=== PATIENT | male | born 1960 | race Caucasian/White ===

== ENCOUNTER 2019-02-19 12:03 | Emergency (ER) | payer MEDICAID ==
[~2019-02-19] VITALS: Ht 170.2 cm; Wt 82.6 kg
--- NOTE | 2019-02-19 12:20 | NUR ---
BIB SELF 58 YEAR OLD MALE C/O DYSURIA, URGENCY. DX UTI, 4 DAYS AGO. ALERT AND OIRENTED X4 BREATHING EVEN AND UNLABORED WITH NO DISTRESS NOTED. SKIN INTACT. PATIENT IS ABLE TO AMBULATE. WAITING TO BE SEEN BY MD.
--- NOTE | 2019-02-19 12:27 | NUR ---
URINE COLLECTED SENT TO LAB
[2019-02-19 12:34] LABS: BASOPHILS # (AUTO) 0.1 /CMM (0.0-0.2); BASOPHILS % (AUTO) 0.7 % (0.0-2.0); EOSINOPHILS % (AUTO) 1.4 % (0.0-6.0); HEMATOCRIT 45 % (39-51); HEMOGLOBIN 15.4 g/dL (13.5-17.5); LYMPHOCYTES % (AUTO) 20.9 % (20.0-44.0); MEAN CORPUSCULAR HGB CONC 34 g/dl (31.0-36.0); MEAN CORPUSCULAR VOLUME 88 fL (80-96); MONOCYTES # (AUTO) 1.1 /CMM (0.1-1.30); MONOCYTES % (AUTO) 11.3 % (2.0-12.0); NEUTROPHILS # (AUTO) 6.4 /CMM (1.8-8.9); NEUTROPHILS % (AUTO) 65.7 % (43.0-81.0); PLATELET COUNT (AUTO) 236 /CMM (150-450); RED BLOOD CELL COUNT(AUTO) 5.13 MIL/uL (4.5-6.0); WHITE BLOOD COUNT (AUTO) 9.7 K/uL (4.3-11.0)
[2019-02-19 12:44] LABS: CALCIUM, SERUM 9.3 mg/dL (8.5-10.1); CREATININE 2.3 mg/dL (0.6-1.3); POTASSIUM 4.2 mmol/L (3.5-5.1)
--- NOTE | 2019-02-19 12:45 | NUR ---
FIRE MED[facility] AT BEDSIDE TO TAKE PATIENT FOR CT SCAN
[2019-02-19 13:32] LABS: APPEARANCE,URINE Slightly Cloudy (CLEAR); BILIRUBIN,URINE SMALL (NEGATIVE); BLOOD, URINE Moderate Ery/uL (NEGATIVE); KETONES,URINE Negative (NEGATIVE); LEUKOCYTE ESTERASE ,URINE Negative (NEGATIVE); NITRITE, URINE Positive (NEGATIVE); PROTEIN,URINE >=300 mg/dl (NEGATIVE); UGLUCOSE 100 MG/DL mg/dL (NEGATIVE)
[2019-02-19 13:34] LABS: COLOR,URINE Dark Yellow (YELLOW)
[2019-02-19 13:42] LABS: RBC,URINE 20-50 /HPF (0-2)
[2019-02-19 13:43] LABS: BACTERIA,URINE Few /HPF (None Seen); SQUAMOUS EPITHELIAL CELL,UR Few /HPF (None Seen)
[2019-02-19 13:52] VITALS: BP 144/80
== END 2019-02-19 13:53 | disposition home or self-care (01) ==
LOC: ER 12:09
DX: N39.0 Urinary tract infection, site not specified (principal); L98.8 Other specified disorders of the skin and subcutaneous tissue; E78.00 Pure hypercholesterolemia, unspecified
CPT/HCPCS: 36415; 80048-TC; 81000-TC; 85025-TC; 87086-TC

== ENCOUNTER 2019-03-23 09:17 | Inpatient (IN) | payer MEDICAID ==
[~2019-03-23] VITALS: Ht 167.6 cm; Wt 84.8 kg
--- NOTE | 2019-03-23 09:32 | NUR ---
PT BIB SELF C/O GROIN AND SCROTAL PAIN FOR 3 DAYS, PT IS AAOX4, NOT IN RESPIRATORY DISTRESS, HOOKED TO MONITOR, KEPT RESTED AND COMFORTABLE, WILL CONTINUE TO MONITOR.
--- NOTE | 2019-03-23 09:43 | NUR ---
AT BEDSIDE FOR EVAL.
[2019-03-23] MEDS ORDERED: IV NS 0.9% 1,000 ML BAG IV ONE (10:00)
--- NOTE | 2019-03-23 10:00 | NUR ---
IV LINE ESTABLISHED, BLOOD DRAWN AND SENT TO LAB.
[2019-03-23 10:03] LABS: BASOPHILS % (AUTO) 0.3 % (0.0-2.0); EOSINOPHILS % (AUTO) 0.2 % (0.0-6.0); HEMATOCRIT 43 % (39-51); HEMOGLOBIN 14.4 g/dL (13.5-17.5); LYMPHOCYTES # (AUTO) 1.6 /CMM (0.8-4.8); LYMPHOCYTES % (AUTO) 10.8 % (20.0-44.0); MEAN CORPUSCULAR HGB CONC 34 g/dl (31.0-36.0); MEAN CORPUSCULAR VOLUME 86 fL (80-96); MONOCYTES # (AUTO) 1.6 /CMM (0.1-1.30); NEUTROPHILS # (AUTO) 11.1 /CMM (1.8-8.9); NEUTROPHILS % (AUTO) 77.7 % (43.0-81.0); PLATELET COUNT (AUTO) 255 /CMM (150-450); RED BLOOD CELL COUNT(AUTO) 4.94 MIL/uL (4.5-6.0); WHITE BLOOD COUNT (AUTO) 14.4 K/uL (4.3-11.0)
--- NOTE | 2019-03-23 10:03 | NUR ---
TECH AT BEDSIDE FOR US.
[2019-03-23 10:22] LABS: ALBUMIN 3.7 g/dL (3.4-5.0); BILIRUBIN,DIRECT 0.3 mg/dL (0.0-0.2); BILIRUBIN,TOTAL 1.4 mg/dL (0.2-1.0); CALCIUM, SERUM 9.4 mg/dL (8.5-10.1); CREATININE 1.7 mg/dL (0.6-1.3); TOTAL PROTEIN, SERUM 8.2 g/dL (6.4-8.2)
--- NOTE | 2019-03-23 10:46 | NUR ---
URINE SPECIMEN COLLECTED AND SENT TO LAB.
[2019-03-23 10:50] LABS: APPEARANCE,URINE Cloudy (CLEAR); BILIRUBIN,URINE Negative (NEGATIVE); BLOOD, URINE Large Ery/uL (NEGATIVE); COLOR,URINE Yellow (YELLOW); KETONES,URINE Negative (NEGATIVE); LEUKOCYTE ESTERASE ,URINE Large (NEGATIVE); NITRITE, URINE Positive (NEGATIVE); PH,URINE 5.5 (5.0-8.0); PROTEIN,URINE 100 mg/dl (NEGATIVE); UGLUCOSE Negative (NEGATIVE); UROBILINOGEN,URINE 0.2 EU/dL (0.2)
[2019-03-23 10:57] LABS: RBC,URINE 21-50 /HPF (0-2); WBC,URINE TOO NUMEROUS TO COUN /HPF (0-3)
[2019-03-23 10:58] LABS: BACTERIA,URINE 2+ /HPF (None Seen); MUCUS,URINE Few /LPF (None Seen); SQUAMOUS EPITHELIAL CELL,UR 0-2 /HPF (None Seen); URINE AMORPHOUS URATE Few /HPF (None Seen)
[2019-03-23] MEDS ORDERED: DIATRIZOATE MEGLUMINE 300 ML BOTTLE UR ONE (11:49)
--- NOTE | 2019-03-23 11:51 | NUR ---
PT IS WHEELED TO CT SCAN VIA [facility].
--- NOTE | 2019-03-23 12:08 | NUR ---
PT CONSENT SIGNED FOR CYSTOGRAM.
[2019-03-23] MEDS ORDERED: IOHEXOL-300 100 ML VIAL IV ONE (12:37)
[2019-03-23] MEDS ORDERED: PIPERACILLIN /TAZOBACTAM 3.375 G in IV D5W 50 ML IV ONE (14:00)
--- NOTE | 2019-03-23 14:53 | NUR ---
SPOKED TO TRANSFER MAN, WILL PRESENT PATIENT TO DR. HASSAN HOSPITALIST.
--- NOTE | 2019-03-23 17:00 | NUR ---
CALLED [facility] FOR A CONSULT.
--- NOTE | 2019-03-23 17:36 | NUR ---
SECOND ATTEMPT FOR [facility].
[2019-03-23] MEDS ORDERED: SULF1TAB3 PO (18:02)
[2019-03-23] MEDS ORDERED: CIPR500T5 PO (18:02)
--- NOTE | 2019-03-23 18:12 | NUR ---
NEREIDA SUP GAVE BED 107
--- NOTE | 2019-03-23 18:16 | NUR ---
REPORT GIVEN TO NEREIDA HILLIARD FOR JOAN.
--- NOTE | 2019-03-23 20:10 | NUR ---
RN ADMITTING NOTES: RECEIVED PATIENT FROM ER WITH DX DIVERTICULITIS AND UTI. VITAL SIGNS TAKEN. PHYSICAL ASSESSMENT DONE. A&OX4. ON RA, TOLERATING WELL. NO RESPIRATORY DISTRESS. PATIENT AMBULATORY WITH STEADY GAIT. C/O 3/10 GROIN PAIN UPON POSITION CHANGES. OFFERED PAIN MEDICATION. PATIENT REFUSED AND STATES HE WANTS TO AVOID PAIN MEDS AT THIS TIME. RISKS AND BENEFITS EXPLAINED. (R) AC #18 INTACT, PATENT, AND FLUSHING WELL. CRANE CATHETER PATENT AND DRAINING CLEAR YELLOW URINE. SAFETY PRECAUTIONS IMPLEMENTED. BED LOCKED AND IN LOWEST POSITION. CALL LIGHT PLACED WITHIN REACH. WILL CONT. TO MONITOR.
[2019-03-23 20:30] VITALS: BP 102/54
[2019-03-23] MEDS ORDERED: ACETAMINOPHEN 325 MG TABLET PO PRN (20:30)
[2019-03-23] MEDS ORDERED: ONDANSETRON HCL/PF 4 MG/2 ML VIAL IVP PRN (20:30)
[2019-03-23] MEDS ORDERED: MAG HYDROX/AL HYDROX/SIMETH 30 ML UDC PO PRN (20:30)
[2019-03-23] MEDS ORDERED: MORPHINE SULFATE INJ 2 MG/ML DISP.SYRIN IV PRN (20:30)
[2019-03-23] MEDS ORDERED: MAGNESIUM HYDROXIDE 30 ML UDC PO PRN (20:30)
[2019-03-23] MEDS: IV 1/2NS 1000 ML 1,000 ML IV PRN (20:51)
[2019-03-23] MEDS: PIPERACILLIN /TAZOBACTAM 3.375 G in IV D5W 100 ML IV SCH (20:52)
[2019-03-23] MEDS: ZOLPIDEM TARTRATE 5 MG TABLET PO PRN (23:40)
[2019-03-24] MEDS ORDERED: PIPERACILLIN /TAZOBACTAM 3.375 G in IV D5W 50 ML IV SCH ×2
[2019-03-24 04:00] VITALS: BP 105/60
[2019-03-24] MEDS: PIPERACILLIN /TAZOBACTAM 3.375 G in IV D5W 100 ML IV SCH ×3 (04:06→21:42)
--- NOTE | 2019-03-24 06:30 | NUR ---
RN CLOSING NOTES: PATIENT IN AWAKE AND VERBALLY RESPONSIVE. NO RESPIRATORY DISTRESS. NO PAIN AT THIS TIME. SAFETY PRECAUTIONS IMPLEMENTED. ALL NEEDS ATTENDED. CALL LIGHT WITHIN REACH. WILL ENDORSE TO AM SHIFT NURSE FOR CONTINUITY OF CARE.
[2019-03-24 07:00] LABS: BASOPHILS % (AUTO) 0.2 % (0.0-2.0); EOSINOPHILS % (AUTO) 1.3 % (0.0-6.0); HEMATOCRIT 41 % (39-51); HEMOGLOBIN 13.5 g/dL (13.5-17.5); LYMPHOCYTES # (AUTO) 1.3 /CMM (0.8-4.8); LYMPHOCYTES % (AUTO) 11.7 % (20.0-44.0); MEAN CORPUSCULAR HGB CONC 33 g/dl (31.0-36.0); MEAN CORPUSCULAR VOLUME 88 fL (80-96); MONOCYTES # (AUTO) 1.2 /CMM (0.1-1.30); MONOCYTES % (AUTO) 10.5 % (2.0-12.0); NEUTROPHILS # (AUTO) 8.6 /CMM (1.8-8.9); NEUTROPHILS % (AUTO) 76.3 % (43.0-81.0); PLATELET COUNT (AUTO) 249 /CMM (150-450); WHITE BLOOD COUNT (AUTO) 11.3 K/uL (4.3-11.0)
[2019-03-24 07:25] LABS: THYROID STIMULATING HORMONE 0.949 uIU/mL (0.358-3.74)
[2019-03-24 07:29] LABS: ALBUMIN 3.1 g/dL (3.4-5.0); BILIRUBIN,TOTAL 0.9 mg/dL (0.2-1.0); CALCIUM, SERUM 9.1 mg/dL (8.5-10.1); CREATININE 1.7 mg/dL (0.6-1.3); PHOSPHORUS 3.5 mg/dL (2.5-4.9); POTASSIUM 3.8 mmol/L (3.5-5.1); TOTAL PROTEIN, SERUM 7.4 g/dL (6.4-8.2)
[2019-03-24 08:00] VITALS: BP_SYST 102; BP_SYST 120; BP_DIAS 65
[2019-03-24] MEDS: PANTOPRAZOLE 40 MG TABLET.DR PO SCH (08:25)
[2019-03-24] MEDS ORDERED: ASPIRIN 81 MG TAB.CHEW PO STA (11:51)
--- NOTE | 2019-03-24 11:57 | NUR ---
rn note pt co pressure in heart/chest, no pain in back or arm, aox4, vs stable, Dr Guevara reached and got orders for aspirin 81 mg, stat EKG, nitroglycerin, series of troponin. pt had normal sinus rhythm, ham boner placed on his chest. refused nitroglycerin SL stating "I feel ok after I walked." will monitor further.
[2019-03-24 12:00] VITALS: BP 116/75
[2019-03-24] MEDS ORDERED: NITROGLYCERIN 0.4 MG/TAB BOTTLE SL PRN (12:00)
[2019-03-24 16:00] VITALS: BP 124/81
--- NOTE | 2019-03-24 19:20 | NUR ---
RN OPENING NOTES: PATIENT AWAKE AND VERBALLY RESPONSIVE. A&OX4. NO RESPIRATORY DISTRESS. NO C/O PAIN AT THIS TIME. (R) AC #18 INTACT, PATENT, AND FLUSHING WELL RUNNING 1/2 NS AT 80 MLS/HR, TOLERATING WELL. CRANE INTACT, PATENT, AND DRAINING URINE. SAFETY PRECAUTIONS IMPLEMENTED. BED LOCKED AND IN LOWEST POSITION. CALL LIGHT PLACED WITHIN REACH. WILL CONT. TO MONITOR.
[2019-03-24 20:00] VITALS: BP 119/72
--- NOTE | 2019-03-24 20:00 | NUR ---
RN NOTE: PATIENT SEEN BY DR. MCCABE WITH NEW ORDERS.
--- NOTE | 2019-03-24 20:27 | NUR ---
RN NOTE: PAGED DR. MCCABE TO CLARIFY DOXYCYCLINE ATB SECONDARY TO UTI. PATIENT ALREADY ON ZOSYN. AWAITING FOR CALL BACK. Addendum: 03/24/19 at 2316 by PATRIC MERCEDES RN PER PHARMACIST ANA, PATIENT CAN'T HAVE 2 ATBX FOR UTI AT THE SAME TIME. PATIENT'S BUN AND CREATININE ARE HIGH. Addendum: 03/25/19 at 0625 by PATRIC MERCEDES RN NOTIFIED DR. CHAVEZ REGARDING DOXYCYCLINE. PER MD CONTVikash GAN FOR NOW AND TO ADDRESS THIS WITH AM PROVIDER. WILL ENDORSE TO AM SHIFT NURSE.
[2019-03-24] MEDS: KETOROLAC TROMETHAMINE INJ 30 MG/ML VIAL IV SCH (21:02)
--- NOTE | 2019-03-24 21:30 | NUR ---
RN NOTE: PATIENT WANTED (R) AC IV ACCESS REMOVED. PATIENT STATES HE'S NOT ABLE TO BEND (R) ARM FREELY. CHARGE NURSE INSERTED A NEW IV LINE ON (R) FOREARM #18 PER PATIENT'S REQUEST, TOLERATED PROCEDURE WELL.
[2019-03-24] MEDS: IV 1/2NS 1000 ML 1,000 ML IV PRN (21:40)
--- NOTE | 2019-03-25 00:20 | NUR ---
RN NOTE: PATIENT REFUSED BLOOD WORK DONE FOR TROPONIN. RISKS AND BENEFITS EXPLAINED BUT STILL REFUSED. PER LAKEISHA FROM LAB, THEY WILL ATTEMPT AGAIN IN AM. Addendum: 03/25/19 at 0048 by PATRIC MERCEDES RN DR. CHAVEZ MADE AWARE. NO NEW ORDERS.
[2019-03-25] MEDS: ZOLPIDEM TARTRATE 5 MG TABLET PO PRN (00:27)
--- NOTE | 2019-03-25 00:44 | NUR ---
DR. CHAVEZ MADE AWARE. NO NEW ORDERS.
[2019-03-25] MEDS: KETOROLAC TROMETHAMINE INJ 30 MG/ML VIAL IV SCH ×2 (02:29→07:56)
[2019-03-25 04:00] VITALS: BP 109/72
[2019-03-25] MEDS: PIPERACILLIN /TAZOBACTAM 3.375 G in IV D5W 100 ML IV SCH (05:37)
--- NOTE | 2019-03-25 06:40 | NUR ---
RN NOTE: PATIENT REFUSED AM BLOOD WORK. RISKS AND BENEFITS EXPLAINED BUT STILL REFUSED. PER LAB, HE WILL ATTEMPT AGAIN LATER.
--- NOTE | 2019-03-25 07:05 | NUR ---
RN CLOSING NOTES: PATIENT ASLEEP BUT EASILY AROUSABLE. NO RESPIRATORY DISTRESS. NO PAIN AT THIS TIME. SAFETY PRECAUTIONS IMPLEMENTED. ALL NEEDS ATTENDED. CALL LIGHT WITHIN REACH. PER DR. CHAVEZ, CONT. ON ZOSYN FOR NOW AND F/U WITH AM PROVIDER REGARDING DOXYCYCLINE ORDERED BY DR. MCCABE. ENDORSED TO AM SHIFT NURSE.
[2019-03-25] MEDS: PANTOPRAZOLE 40 MG TABLET.DR PO SCH (07:45)
[2019-03-25 08:00] VITALS: BP 105/72
[2019-03-25] MEDS ORDERED: DOXYCYCLINE 200 MG in IV NS 0.9% 250 ML IV SCH (11:00)
[2019-03-25] MEDS: DOXYCYCLINE 100 MG in IV D5W 100 ML IV SCH ×2 (11:48→22:06)
[2019-03-25 12:23] LABS: BASOPHILS % (AUTO) 0.1 % (0.0-2.0); CALCIUM, SERUM 8.8 mg/dL (8.5-10.1); CREATININE 1.9 mg/dL (0.6-1.3); EOSINOPHILS % (AUTO) 2.4 % (0.0-6.0); HEMATOCRIT 39 % (39-51); HEMOGLOBIN 13.2 g/dL (13.5-17.5); LYMPHOCYTES # (AUTO) 0.9 /CMM (0.8-4.8); LYMPHOCYTES % (AUTO) 10.8 % (20.0-44.0); MEAN CORPUSCULAR HGB CONC 34 g/dl (31.0-36.0); MEAN CORPUSCULAR VOLUME 87 fL (80-96); MONOCYTES # (AUTO) 0.9 /CMM (0.1-1.30); MONOCYTES % (AUTO) 10.8 % (2.0-12.0); NEUTROPHILS # (AUTO) 6.6 /CMM (1.8-8.9); NEUTROPHILS % (AUTO) 75.9 % (43.0-81.0); PLATELET COUNT (AUTO) 242 /CMM (150-450); POTASSIUM 3.8 mmol/L (3.5-5.1); WHITE BLOOD COUNT (AUTO) 8.7 K/uL (4.3-11.0)
[2019-03-25] MEDS: IV 1/2NS 1000 ML 1,000 ML IV PRN (13:28)
[2019-03-25 16:00] VITALS: BP 117/75
[2019-03-25] MEDS: HYDROCODONE/APAP 5/325MG 1 EACH TABLET PO PRN (17:34)
--- NOTE | 2019-03-25 19:30 | NUR ---
MS RN OPENING NOT E RECEIVED PATIENT IN BED. A/OX4. TOLERATING ROOM AIR,. RR EVEN AND UNLABORED, NO SOB NOTED. DENIES PAIN AT THIS TIME. IN NO APPARENT DISTRESS. IV ACCESS IN RAC RUNNING D5 05/16 NS @80ML. BED IS LOW AN DLOCKED, HOB ELEVATED 50 DEGREES, SIDE RIALS UP X2. CRANE CATHETER PRESEMT, DRAINING TO GRAVITY, UIRNE IS YELLOW, DARK, SEDIEMNT. CALL LIGHT WITHIN REACH WILL CONT TO MONITOR
[2019-03-25 20:00] VITALS: BP 126/83
[2019-03-26] VITALS: BP 126/83
[2019-03-26] MEDS: HYDROCODONE/APAP 5/325MG 1 EACH TABLET PO PRN ×2 (03:51→23:54)
--- NOTE | 2019-03-26 03:51 | NUR ---
MS RN NOTE ADMINSITER RUBY SIMPSON 5/325 FOR PAIN 10/10 IN SCROTUM, WILL CONTINUE TO MONITOR.
--- NOTE | 2019-03-26 07:00 | NUR ---
MS RN CLOSING NOTE PATIENT IN BED. A/OX4. TOLERATING ROOM AIR,. RR EVEN AND UNLABORED, NO SOB NOTED. PAIN MANAGED WITH NORCO. NO DISTRESS NOTED. IV ACCESS MAINTAINED IN RAC RUNNING D5 05/16 NS @80ML. BED IS LOW AN DLOCKED, HOB ELEVATED 50 DEGREES, SIDE RIALS UP X2. CRANE CATHETER MAINTAINED, DRAINING TO GRAVITY, UIRNE IS YELLOW, DARK, SEDIEMNT, OUTPUT 2400. CALL LIGHT WILL ENDORSE TO NEXT SHIFT.
--- NOTE | 2019-03-26 07:15 | NUR ---
MS RN OPENING NOTE: RECEIVED PATIENT IN BED. AWAKE, ALERT AND ORIENTED X4. ON ROOM AIR AND TOLERATING WELL AT 100% SATURATION. WITH IV SITE AT RIGHT FOREARM, DRESSING CLEAN, DRY AND SECURE. PATIENT REPORTED DISCOMFORT AT SITE, REDNESS AND PAIN NOTED REPORTED BY PATIENT. WILL REMOVE AND REINSERT AT ANOTHER SITE, PATIENT AGREES WITH THE PLAN. WITH CRANE CATHETER, DRAINING YELLOW URINE. SCROTAL EDEMA NOTED AND PATIENT REPORTS PAIN AT THE SITE. OFFERED PAIN MEDICATION, REFUSED. BED LOCKED, LOW AND SEMI-COLLIER'S POSITION. SIDE RAILS UP, CALL LIGHT IN REACH. WILL CONTINUE TO MONITOR.
[2019-03-26 08:00] VITALS: BP 103/71
[2019-03-26] MEDS: PANTOPRAZOLE 40 MG TABLET.DR PO SCH (08:26)
[2019-03-26] MEDS: DOXYCYCLINE 100 MG in IV D5W 100 ML IV SCH (11:41)
[2019-03-26] MEDS ORDERED: PIPERACILLIN /TAZOBACTAM 3.375 G in IV D5W 50 ML IV ONE (12:00)
[2019-03-26 12:24] VITALS: BP 103/71
[2019-03-26 16:00] VITALS: BP 120/83
[2019-03-26 16:04] VITALS: BP 120/83
[2019-03-26] MEDS: PIPERACILLIN /TAZOBACTAM 3.375 G in IV D5W 100 ML IV SCH (18:52)
--- NOTE | 2019-03-26 18:55 | NUR ---
MS RN CLOSING NOTE: PATIENT IN BED. AWAKE, ALERT AND ORIENTED X4. NO PAIN NOTED. NOT IN DISTRESS. NO CHANGES ON SHIFT. PATIENT IS STABLE. TOLERATING ROOM AIR WELL. IV SITE PATENT AND SITE CLEAN, DRY AND SECURE. CRANE CATHETER IN PLACE, DRAINING YELLOW URINE. CALL LIGHT IN REACH, SIDE RAILS UP. BED LOCKED, LOW AND AT SEMI-COLLIER'S POSITION. WILL ENDORSE TO ONCOMING SHIFT FOR CONTINUITY OF CARE.
[2019-03-26 20:00] VITALS: BP 122/80
[2019-03-26] MEDS ORDERED: DOXYCYCLINE 100 MG in IV D5W 100 ML IV SCH (21:00)
[2019-03-26] MEDS: DOXYCYCLINE HYCLATE (100 MG) 100 MG TABLET PO SCH (21:58)
[2019-03-27] MEDS: PIPERACILLIN /TAZOBACTAM 3.375 G in IV D5W 100 ML IV SCH ×3 (02:59→17:03)
[2019-03-27 04:00] VITALS: BP 102/72
[2019-03-27 06:37] LABS: BASOPHILS % (AUTO) 0.2 % (0.0-2.0); EOSINOPHILS % (AUTO) 3.6 % (0.0-6.0); HEMATOCRIT 41 % (39-51); HEMOGLOBIN 13.5 g/dL (13.5-17.5); LYMPHOCYTES # (AUTO) 1.7 /CMM (0.8-4.8); LYMPHOCYTES % (AUTO) 23.8 % (20.0-44.0); MEAN CORPUSCULAR HGB CONC 33 g/dl (31.0-36.0); MEAN CORPUSCULAR VOLUME 87 fL (80-96); MONOCYTES # (AUTO) 1.1 /CMM (0.1-1.30); MONOCYTES % (AUTO) 15.3 % (2.0-12.0); NEUTROPHILS # (AUTO) 4.2 /CMM (1.8-8.9); NEUTROPHILS % (AUTO) 57.1 % (43.0-81.0); PLATELET COUNT (AUTO) 275 /CMM (150-450); RED BLOOD CELL COUNT(AUTO) 4.71 MIL/uL (4.5-6.0); WHITE BLOOD COUNT (AUTO) 7.3 K/uL (4.3-11.0)
[2019-03-27 06:47] LABS: CALCIUM, SERUM 9.2 mg/dL (8.5-10.1); CREATININE 1.6 mg/dL (0.6-1.3); PHOSPHORUS 4.4 mg/dL (2.5-4.9); POTASSIUM 4.2 mmol/L (3.5-5.1)
--- NOTE | 2019-03-27 07:30 | NUR ---
MS/RN OPENING NOTES RECEIVED PATIENT IN BED AWAKE, ALERT AND ABLE TO MAKE NEEDS KNOWN. PATIENT IN ALERT AND ORIENTED X4. NO PAIN OR ACUTE DISTRESS AT THIS TIME. RESPIRATION EVEN AND UNLABORED. SKIN IS DRY WARM TO TOUCH. PATIENT ON ROOM AIR AND TOLERATING WELL AT 100% SATURATION. PATIENT NOTED WITH IV ACCESS ON LEFT FOREARM. INTACT AND PATENT. FLUSHING WELL. NO S/S OF INFECTION OR INFILTRATION. PATIENT NOTED WITH CRANE CATHETER WELL, DRAINING YELLOW URINE. ALL NEEDS ANTICIPATED. CALL LIGHT WITHIN REACHED. BED LOCKED AND IN LOWEST POSITION. SAFETY MAINTAINED. PLAN OF CARE DISCUSSED. WILL CONTINUE TO MONITOR CLOSELY.
[2019-03-27 08:00] VITALS: BP 112/74
[2019-03-27] MEDS: PANTOPRAZOLE 40 MG TABLET.DR PO SCH (08:06)
[2019-03-27] MEDS: DOXYCYCLINE HYCLATE (100 MG) 100 MG TABLET PO SCH ×2 (08:44→20:13)
--- NOTE | 2019-03-27 09:30 | NUR ---
MS/RN NOTES SPOKE TO DR. ZENDEJAS WITH ORDERS TO D/C 1/2NS FLUID. ALL ORDERS NOTED AND CARRIED OUT. WILL CONTINUE TO MONITOR CLOSELY.
[2019-03-27 16:00] VITALS: BP 123/80
[2019-03-27] MEDS: LACTOBACILLUS RHAMNOSUS GG 1 EACH CAP.SPRINK PO SCH (17:03)
--- NOTE | 2019-03-27 19:27 | NUR ---
MS/RN CLOSING NOTES PATIENT CONTINUES TO REMAIN IN STABLE CONDITION THROUGHOUT THE SHIFT. PROVIDED COMFORT AND SAFETY. PATIENT NOTED WITH IV ACCESS ON LEFT FOREARM. INTACT AND PATENT. FLUSHING WELL. NO S/S OF INFECTION OR INFILTRATION. PATIENT NOTED WITH CRANE CATHETER WELL, DRAINING YELLOW URINE. ALL NEEDS ANTICIPATED. CALL LIGHT WITHIN REACHED. BED LOCKED AND IN LOWEST POSITION. SAFETY MAINTAINED. WILL CONTINUE TO MONITOR CLOSELY. ENDORSED TO PM NURSE FOR JOAN.
--- NOTE | 2019-03-27 19:30 | NUR ---
MS RN NOTE: RECEIVED PT ON BED ALERT AND ORIENTED X4. ABLE TO MAKE NEEDS KNOWN. NO APPARENT DISTRESS NOTED. COMPLAINTS OF SCROTAL PAIN, PAIN MEDS WILL BE GIVEN ORDERED. ON ROOM AIR, BREATHING EVEN AND UNLABORED WITH NORMAL RESPIRATIONS. CRANE CATH INTACT AND DRAINING WELL. LEFT FOREARM #22 INTACT AND PATENT, FLUSHING WELL. KEPT CLEAN, DRY AND COMFORTABLE. CALL LIGHT PLACED WITHIN REACH. WILL CONTINUE TO MONITOR PT.
[2019-03-27 20:00] VITALS: BP 134/83
[2019-03-27] MEDS: HYDROCODONE/APAP 5/325MG 1 EACH TABLET PO PRN (23:22)
[2019-03-28] MEDS: PIPERACILLIN /TAZOBACTAM 3.375 G in IV D5W 100 ML IV SCH ×3 (01:59→18:29)
[2019-03-28 04:00] VITALS: BP 101/72
--- NOTE | 2019-03-28 06:42 | NUR ---
MS RN NOTE: NO CHANGES NOTED THROUGHOUT THE SHIFT. NO APPARENT DISTRESS NOTED. DENIES PAIN AND DISCOMFORT AT THIS TIME. ON ROOM AIR, SATURATING WELL. NO SOB NOTED. CRANE CATH INTACT, DRAINED 1300ML OF URINE OUTPUT. IV ON LEFT FOREARM #22 WAS INFILTRATED. REINSERTED NEW IV LINE ON RIGHT FOREARM #22, INTACT AND PATENT. KEPT CLEAN, DRY AND COMFORTABLE. CALL LIGHT PLACED WITHIN REACH. SAFETY AND FALL PRECAUTIONS OBSERVED AND MAINTAINED. WILL ENDORSE TO DAY SHIFT RN FOR CONTINUITY OF CARE.
--- NOTE | 2019-03-28 07:05 | NUR ---
MS RN OPENING NOTE: RECEIVED PATIENT IN BED. AWAKE, ALERT AND ORIENTEDX4. TOLERATING ROOM AIR @ 99% SATURATION. NO SOB,. NOT IN DISTRESS. IV SITE ON RIGHT FOREARM G22 IS PATENT, SITE CLEAN, DRY AND SECURE. PAIN AT SCROTAL AREA REPORTED BUT REFUSES PAIN MANAGEMENT AT THIS TIME, PATIENT SAYS HE IS TOLERATING IT AT THE MOMENT. CALL LIGHT IN REACH, SIDE RAILS UP, BED LOCKED AND LOW, SEMI-FOWLERS POSITION WILL CONTINUE TO MONITOR.
[2019-03-28 08:00] VITALS: BP 111/78
[2019-03-28] MEDS: PANTOPRAZOLE 40 MG TABLET.DR PO SCH (08:00)
[2019-03-28] MEDS: LACTOBACILLUS RHAMNOSUS GG 1 EACH CAP.SPRINK PO SCH ×2 (08:39→18:27)
[2019-03-28] MEDS: DOXYCYCLINE HYCLATE (100 MG) 100 MG TABLET PO SCH ×2 (08:39→20:33)
[2019-03-28] MEDS: DOCUSATE SODIUM 100 MG CAPSULE PO SCH ×2 (08:39→18:27)
[2019-03-28] MEDS: LORAZEPAM INJ 2 MG/ML VIAL IV PRN ×2 (15:43→23:37)
[2019-03-28 16:00] VITALS: BP 98/63
--- NOTE | 2019-03-28 17:05 | NUR ---
MS RN CLOSING NOTE: PATIENT IS ALERT, AWAKE X 4. CURRENTLY AMBULATING AND REQUESTING FLEET ENEMA FOR RELIEF OF DISCOMFORT FOR HIS BOWELS. CONTACTED DR. DANIELA ZENDEJAS AND ORDER GIVEN. NOTED AND CARRIED OUT. IN STABLE CONDITION, NO SOB, NOT IN DISTRESS. IV SITE PATENT, CRANE IN PLACE. WILL ENDORSE TO ONCOMING NURSE FOR CONTINUITY OF CARE.
[2019-03-28] MEDS ORDERED: NA PHOS,M-B/NA PHOS,DI-BA 1 EA ENEMA RC ONE (19:30)
--- NOTE | 2019-03-28 19:35 | NUR ---
MS/RN NOTES RECEIVED PT. LYING IN BED, PT. IS AWAKE, ALERT AND ORIENTED X4. BREATHING EVEN AND UNLABORED ON ROOM AIR. NO SOB, RESPIRATORY DISTRESS OR COMPLAINTS OF PAIN NOTED AT THIS TIME. PT. WITH RIGHT FOREARM 22 GAUGE IV SALINE LOCK PRESENT, PATENT AND INTACT. PT. PT. WITH CRANE CATHETER PRESENT, PATENT AND INTACT. FAMILY MEMBER PRESENT AT BEDSIDE. BED LOCKED AND IN LOWEST POSITION, SIDE RAILS UP X2, CALL LIGHT WITHIN REACH, WILL CONTINUE TO MONITOR.
[2019-03-28 20:00] VITALS: BP 127/85
[2019-03-28] MEDS: HYDROCODONE/APAP 5/325MG 1 EACH TABLET PO PRN (20:33)
[2019-03-29] MEDS: PIPERACILLIN /TAZOBACTAM 3.375 G in IV D5W 100 ML IV SCH ×2 (02:46→10:58)
[2019-03-29 04:00] VITALS: BP 113/75
--- NOTE | 2019-03-29 06:17 | NUR ---
MS/RN NOTES PT. IS LYING IN BED RESTING. BREATHING EVEN AND UNLABORED ON ROOM AIR. NO SOB, RESPIRATORY DISTRESS OR COMPLAINTS OF PAIN NOTED AT THIS TIME. PT. WITH RIGHT FOREARM 22 GAUGE IV SALINE LOCK PRESENT, PATENT AND INTACT. PT. PT. WITH CRANE CATHETER PRESENT, PATENT AND INTACT. ALL PT. NEEDS MET. BED LOCKED AND IN LOWEST POSITION, SIDE RAILS UP X2, CALL LIGHT WITHIN REACH, WILL ENDORSE TO DAYSHIFT NURSE FOR CONTINUITY OF CARE.
--- NOTE | 2019-03-29 07:15 | NUR ---
MS RN OPENING NOTE RECEIVED REPORT FROM [facility] SHIFT NURSE. PT ASLEEP BED, ON ROOM AIR, SATURATING WELL, RESPIRATIONS EVEN AND UNLABORED, NO SIGNS OF RESPIRATORY DISTRESS NOTED. CRANE CATHETER DRAINING CLEAR YELLOW URINE. IV SITE ON RIGHT FOREARM G22 INTACT, PATENT. BED IN LOW POSITION, LOCKED, CALL LIGHT WITHIN REACH.
[2019-03-29] MEDS: PANTOPRAZOLE 40 MG TABLET.DR PO SCH (07:24)
[2019-03-29 08:00] VITALS: BP 118/56
[2019-03-29 08:16] LABS: BASOPHILS % (AUTO) 0.4 % (0.0-2.0); EOSINOPHILS % (AUTO) 2.2 % (0.0-6.0); HEMATOCRIT 43 % (39-51); HEMOGLOBIN 14.4 g/dL (13.5-17.5); LYMPHOCYTES # (AUTO) 2.1 /CMM (0.8-4.8); LYMPHOCYTES % (AUTO) 28.3 % (20.0-44.0); MEAN CORPUSCULAR HGB CONC 33 g/dl (31.0-36.0); MEAN CORPUSCULAR VOLUME 87 fL (80-96); MONOCYTES # (AUTO) 0.8 /CMM (0.1-1.30); MONOCYTES % (AUTO) 10.1 % (2.0-12.0); NEUTROPHILS # (AUTO) 4.5 /CMM (1.8-8.9); PLATELET COUNT (AUTO) 336 /CMM (150-450); RED BLOOD CELL COUNT(AUTO) 4.97 MIL/uL (4.5-6.0); WHITE BLOOD COUNT (AUTO) 7.6 K/uL (4.3-11.0)
[2019-03-29 08:21] VITALS: BP 104/61
[2019-03-29] MEDS: DOCUSATE SODIUM 100 MG CAPSULE PO SCH ×3 (08:21→17:00)
[2019-03-29] MEDS: DOXYCYCLINE HYCLATE (100 MG) 100 MG TABLET PO SCH (08:21)
[2019-03-29] MEDS: LACTOBACILLUS RHAMNOSUS GG 1 EACH CAP.SPRINK PO SCH ×2 (08:21→17:31)
[2019-03-29] MEDS ORDERED: HYDR-4384 PO (08:25)
[2019-03-29] MEDS ORDERED: LORA-259 PO (08:28)
[2019-03-29 08:46] LABS: ALBUMIN 3.2 g/dL (3.4-5.0); BILIRUBIN,TOTAL 0.5 mg/dL (0.2-1.0); CALCIUM, SERUM 9.7 mg/dL (8.5-10.1); CREATININE 1.7 mg/dL (0.6-1.3); MAGNESIUM 1.9 mg/dL (1.8-2.4); PHOSPHORUS 4.4 mg/dL (2.5-4.9); TOTAL PROTEIN, SERUM 7.9 g/dL (6.4-8.2)
[2019-03-29] MEDS: LORAZEPAM INJ 2 MG/ML VIAL IV PRN (13:02)
[2019-03-29 16:00] VITALS: BP 102/66
[2019-03-29 16:12] VITALS: BP 102/66
--- NOTE | 2019-03-29 17:50 | NUR ---
REMOVED IV, DRESSING APPLIED. ALL DISCHARGE PAPERWORK SIGNED, ALL VALUABLES ACCOUNTED FOR. LEFT UNIT IN STABLE CONDITION.
== END 2019-03-29 17:40 | disposition home health service (06) | DRG 244 ==
LOC: ER 09:20 → MEDSG1 19:26
PROVIDERS: ADMIT Nurse Practitioner Acute Care; ATTEND Nurse Practitioner Acute Care
PROC: 05HC33Z Insertion of Infusion Device into Left Basilic Vein, Percutaneous Approach (ICD-10-PCS; principal; 2019-03-29)
DX: K57.20 Diverticulitis of large intestine with perforation and abscess without bleeding (principal); N17.0 Acute kidney failure with tubular necrosis; N30.01 Acute cystitis with hematuria; K65.9 Peritonitis, unspecified; E87.1 Hypo-osmolality and hyponatremia; E44.1 Mild protein-calorie malnutrition; E86.1 Hypovolemia; N32.1 Vesicointestinal fistula; E78.5 Hyperlipidemia, unspecified; Z87.891 Personal history of nicotine dependence; B96.89 Other specified bacterial agents as the cause of diseases classified elsewhere; D72.829 Elevated white blood cell count, unspecified; E66.9 Obesity, unspecified; Z68.31 Body mass index [BMI] 31.0-31.9, adult; N18.9 Chronic kidney disease, unspecified; F41.9 Anxiety disorder, unspecified; N43.3 Hydrocele, unspecified; R73.9 Hyperglycemia, unspecified; E80.6 Other disorders of bilirubin metabolism; N45.3 Epididymo-orchitis; B96.20 Unspecified Escherichia coli [E. coli] as the cause of diseases classified elsewhere
CPT/HCPCS: 36415; 74430-TC; 76770-TC; 76870-TC; 80048-TC; 80053-TC; 80061-TC; 80076-TC; 81000-TC; 83605-TC; 83735-TC; 84100-TC; 84443-TC; 84484-TC; 85025-TC; 85730-TC; 87040-TC; 87081-TC; 87086-TC; 87186-TC; 93307-TC; A9698; G0378; J1885; J2060; J2543; J3490; J7030; J7050; J7060; Q9967

== ENCOUNTER 2019-04-13 14:07 | Emergency (ER) | payer MEDICAID ==
[~2019-04-13] VITALS: Ht 170.2 cm; Wt 72.6 kg
[~2019-04-13 14:07] MED LIST: HYDR-4384 PO; LORA-259 PO
--- NOTE | 2019-04-13 14:20 | NUR ---
Leg Pain "was admitted here last 03/29 sent home on abx. Started having pain on leg-worse now" PATIENT A/OX4, BREATHING EVEN AND UNLABORED, NO SOB NOTED. NEEDS ATTENDED. ATTACHED TO THE [employer]ICKER MOLDED CANDLES.
--- NOTE | 2019-04-13 15:00 | NUR ---
US TECH AT BEDSIDE.
[2019-04-13 16:12] VITALS: BP 136/84
--- NOTE | 2019-04-13 16:12 | NUR ---
Patient discharged to home in stable condition. Written and verbal after care instructions given. Patient verbalizes understanding of instruction.
== END 2019-04-13 16:14 | disposition home or self-care (01) ==
LOC: ER 14:09
DX: M79.605 Pain in left leg (principal); M79.604 Pain in right leg; R10.9 Unspecified abdominal pain; E78.00 Pure hypercholesterolemia, unspecified; Z87.440 Personal history of urinary (tract) infections; Z79.899 Other long term (current) drug therapy
CPT/HCPCS: 76770-TC; 93970-TC

== ENCOUNTER 2020-09-30 13:54 | Emergency (ER) | payer MEDICAID ==
[~2020-09-30] VITALS: Ht 167.6 cm; Wt 106.6 kg
[2020-09-30 14:50] LABS: BASOPHILS % (AUTO) 0.4 % (0.0-2.0); EOSINOPHILS % (AUTO) 1.8 % (0.0-6.0); HEMATOCRIT 46 % (39-51); HEMOGLOBIN 15.3 g/dL (13.5-17.5); LYMPHOCYTES # (AUTO) 2.1 /CMM (0.8-4.8); LYMPHOCYTES % (AUTO) 23.6 % (20.0-44.0); MEAN CORPUSCULAR HGB CONC 34 g/dl (31.0-36.0); MEAN CORPUSCULAR VOLUME 90 fL (80-96); MONOCYTES # (AUTO) 0.7 /CMM (0.1-1.30); MONOCYTES % (AUTO) 8.1 % (2.0-12.0); NEUTROPHILS # (AUTO) 5.9 /CMM (1.8-8.9); NEUTROPHILS % (AUTO) 66.1 % (43.0-81.0); PLATELET COUNT (AUTO) 187 /CMM (150-450); RED BLOOD CELL COUNT(AUTO) 5.09 MIL/uL (4.5-6.0); WHITE BLOOD COUNT (AUTO) 8.9 K/uL (4.3-11.0)
[2020-09-30 15:04] LABS: ALANINE AMINOTRANSFERASE 51 U/L (12-78); ALBUMIN 3.8 g/dL (3.4-5.0); ALKALINE PHOSPHATASE 49 U/L (46-116); ASPARTATE AMINOTRANSFERASE 29 U/L (15-37); BILIRUBIN,DIRECT 0.1 mg/dL (0.0-0.2); BILIRUBIN,TOTAL 0.6 mg/dL (0.2-1.0); CALCIUM, SERUM 9.4 mg/dL (8.5-10.1); CARBON DIOXIDE 25 mmol/L (21-32); CHLORIDE 104 mmol/L (98-107); CREATININE 1.6 mg/dL (0.6-1.3); GLUCOSE 103 mg/dL (74-106); POTASSIUM 4.3 mmol/L (3.5-5.1); SODIUM SERUM 138 mmol/L (136-145); TOTAL PROTEIN, SERUM 7.9 g/dL (6.4-8.2); UREA NITROGEN, BLOOD 16 mg/dL (7-18)
--- NOTE | 2020-09-30 15:21 | NUR ---
BIBS FROM HOME TO ER BED 3. AAOX4. NOT IN RESP DISTRESS, BREATHING EVEN AND UNLABORED BREATHING. AMBULATORY. CAME IN FOR DIZZYNESS AND FATIGUE S/P COVID VACCINE X 4 DAYS. MD WAS AT THE BEDSIDE FOR EVAL. ORDERS RECEIVED, NOTED AND CARRIED OUT.
[2020-09-30] MEDS ORDERED: AZIT250T PO (15:37)
[2020-09-30] MEDS ORDERED: GUAI-671 PO (15:37)
--- NOTE | 2020-09-30 15:58 | NUR ---
PT ALSO COMPLAINING OF RLQ ABD. AWARE. AND ORDERED ADDITIONAL CT SCAN
--- NOTE | 2020-09-30 16:01 | NUR ---
PT TO CT ON WHEELCHAIR
--- NOTE | 2020-09-30 16:30 | NUR ---
Patient discharged to home in stable condition. Written and verbal after care instructions given. Patient verbalizes understanding of instruction. Pt ambulatory with a steady gait
[2020-09-30 16:34] VITALS: BP 139/91
== END 2020-09-30 16:35 | disposition home or self-care (01) ==
LOC: ER 13:54
DX: R10.9 Unspecified abdominal pain (principal); R42 Dizziness and giddiness; I10 Essential (primary) hypertension; E78.00 Pure hypercholesterolemia, unspecified; Z79.899 Other long term (current) drug therapy
CPT/HCPCS: 36415; 71045-TC; 80048-TC; 80076-TC; 84484-TC; 85025-TC